=== PATIENT | female | born 1965 | race Caucasian/White ===

== ENCOUNTER 2017-03-27 08:24 | Emergency (ER) | payer MEDICARE, MEDICAID ==
[~2017-03-27] VITALS: Ht 167.6 cm; Wt 88.9 kg
[~2017-03-27 08:24] MED LIST: ADVAIR 500-501 EACH IH; CLONAZEPAM1 MG PO; COPAXONE20 MG/1 ML SQ; CYMBALTA60 MG PO; DEMADEX20 MG PO; DICYCLOMINE HCL20 MG PO; GEODON60 MG PO; HUMULIN R500 UNIT/1; HUMULIN R500 UNIT/1 SUB-Q; KLOR-CON M2020 MEQ PO; LAMICTAL200 MG PO; LASIX20 MG PO; LEVOXYL100 MCG PO; LYRICA50 MG PO; MAXALT MLT10 MG PO; NEURONTIN300 MG PO; NORCO 5-325 TA1 EACH PO; NOVOLIN R100 UNIT/1 IJ; ONDANSETRON ODT4 MG SL; PREVACID30 MG PO; PROMETHAZINE HC25 M1 PO; SINGULAIR10 MG PO; TRAZODONE HCL50 MG PO; VESICARE5 MG PO; VITAMIN D5000 UNIT PO
[2017-03-27] MEDS ORDERED: CYMBALTA60 MG PO (08:38)
[2017-03-27] MEDS ORDERED: OMEPRAZOLE20 MG PO (08:48)
[2017-03-27] MEDS ORDERED: ADVAIR 500-501 EACH INH (08:48)
[2017-03-27] MEDS ORDERED: VITAMIN D35000 UNIT PO (08:48)
[2017-03-27] MEDS ORDERED: TOPIRAMATE25 MG PO (08:49)
== END 2017-03-27 13:48 | disposition home or self-care (01) ==
LOC: ED 08:24
DX: G43.901 Migraine, unspecified, not intractable, with status migrainosus (principal); F31.9 Bipolar disorder, unspecified; E78.00 Pure hypercholesterolemia, unspecified; E11.9 Type 2 diabetes mellitus without complications; E66.9 Obesity, unspecified; J45.909 Unspecified asthma, uncomplicated; Z87.891 Personal history of nicotine dependence; Z88.2 Allergy status to sulfonamides; Z91.040 Latex allergy status; Z88.5 Allergy status to narcotic agent; Z79.899 Other long term (current) drug therapy; R11.2 Nausea with vomiting, unspecified
CPT/HCPCS: 80053; 85025; 96361; 96372; 96374; 96375; 99284; J1200; J1885; J2765; J7030

== ENCOUNTER 2017-04-01 13:08 | Observation (INO) | payer MEDICARE, MEDICAID ==
[~2017-04-01] VITALS: Ht 167.6 cm; Wt 88.9 kg
[~2017-04-01 13:08] MED LIST changes: +ADVAIR 500-501 EACH INH; +OMEPRAZOLE20 MG PO; +TOPIRAMATE25 MG PO; +VITAMIN D35000 UNIT PO
--- NOTE | 2017-04-01 16:39 | NUR ---
PATIENT TO FLOOR FROM ED, ADMITTED WITH K+ OF 2.7 AND HYPOGYLCEMIA. CBG 119. ORDERED PATIENT DRY TOAST AND CHICKEN NOODLE SOUP. FULL BODY ASSESMENT DONE. PATIENT COMPLAINTS OF MIGRAIN 8/10 ON PAIN SCALE. IV FLUIDS INFUSING. WARM BLANKET PROVIDED. PATIENT TO [facility], PIVOT TRANSFER SECONDARY TO [facility].
--- NOTE | 2017-04-01 19:04 | NUR ---
PATIENT RECIEVED IV TORADOL FOR MIGRAINE PAIN. MAG RIDER INFUSING, LR WITH 40 K @125 ML/HR. 1 PERSON STBY WITH PIVOT TRANSFERS [place] [facility] [place]. PATIENT RESTING IN BED, APPEARS CALM. LUNG SOUNDS CLEAR. VS STABLE. CBG STABLE 119
--- NOTE | 2017-04-01 19:33 | NUR ---
RECEIVED REPORT FROM DAY SHIFT RN. PATIENT IS RESTING IN BED WITH EYES CLOSED. PATIENTS BREATHING IS EVEN AND UNLABORED, RR 17. CALL LIGHT IN REACH.
--- NOTE | 2017-04-01 20:15 | NUR ---
PLACED CALL TO MD ABOUT PATIENTS NEW ONSET MIGRAINE. MD SATED THAT NEW ORDER WOULD BE PUT INTO COMPUTER.
--- NOTE | 2017-04-01 21:54 | NUR ---
PATIENT ASSESMENT COMPLETED. PATIENTS EVENING MEDICATIONS GIVEN PER ORDER. PATIENT COMPLAINS OF A NEW ONSET MIGRAINE. PRN MEDICATION GIVEN PER ORDER. PATIENT COMPLAINS OF NAUSEA. PATIENT GIVEN PRN NAUSEA MEDICATION. PATIENT ASSISTED TO THE [facility]. PATIENT IS A 1PA PIVOT TRANSFER AND TOLERATES ACITIVITY WELL. PATIENT IS NOW BACK IN BED WATCHING TV. PATIENT DENIES ANY FURTHER NEEDS AT THIS TIME. CALL LIGHT IS WITHIN REACH.
--- NOTE | 2017-04-01 23:03 | NUR ---
ROUNDED ON PATIENT. PATIENT AND FAMILY DENY AND COMPLAINTS OR CONCERNS. ALL QUESTIONS ANSWERED.
--- NOTE | 2017-04-01 23:16 | NUR ---
PATIENT ASSISTED BACK TO BED. PATIENT TOLERATED AMBUALTION OKAY. PATIENTS FORD DRAINED AND DRESSING AROUND FORD CHANGED IT WAS SATURATED. PATIENTS WATER REFILLED. PATIENT DENIES ANY FURTHER NEEDS. CALL LIGHT IS WITHIN REACH.
--- NOTE | 2017-04-02 01:17 | NUR ---
PATIENT IS RESTING IN BED WITH EYES CLOSED, RR17
--- NOTE | 2017-04-02 02:09 | NUR ---
PATIENTS VITALS TAKEN AND RECORDED. PATIENT DENIES ANY PAIN AT THIS TIME. PATIENT ASSISTED TO THE [facility] [place] 1PA PIVOT TRANSFER. PATIENT TOLERATED ACTIVITY WELL. PATIENT IS NOW BACK IN BED RESTING. PATIENT DENIES ANY FURTHER NEEDS. CALL LIGHT IS WITHIN REACH.
--- NOTE | 2017-04-02 04:20 | NUR ---
PATIENT IS RESTING IN BED WITH EYES CLOSED. PATIENT IS POSITIONED ON HER RIGHT SIDE. BREATHING IS EVEN AND UNLABORED, RR18
--- NOTE | 2017-04-02 05:13 | NUR ---
PATIENT RESTED WELL DURING THE LATER PART OF THE SHIFT. PATIENT GIVEN IMITREX FOR COMPLAINTS OF A MIGRAINE. PATIENT ALSO GIVEN X1 PRN NAUSEA MEDICATION. PATIENT IS ON AN ADA DIET W/1800 CALORIE LIMIT AND IS TOLERATING IT WELL. PATIENT IS A 1PA TO PIVOT TRANSFER TO [facility] [place]. PATIENT DOES WELL W/TRANSFERS. PATIENT HAS AN AKA AMPUTATION W/PROSTHETIC. PROSTHETIC IS AT HOME. PATIENT IS AAOX3 AND CALLS APPROPRIATELY.
--- NOTE | 2017-04-02 06:11 | NUR ---
PATIENT IS REQUESTING PAIN MEDICATION FOR HER MIGRAINE. PATIENT RATES MIGRAINE AT A 5/10. PATIENT GIVEN PRN TORADOL. PATIENT DENIES ANY FURTHER NEEDS AT THIS TIME. CALL LIGHT IS WITHIN REACH.
--- NOTE | 2017-04-02 07:15 | NUR ---
REPORT RECEIVED FROM GAS PLUMBING INSPECTOR RN USING 5 P'S. PT AWAKE AND ALERT IN BED. STATES HEADACHE "MUCH BETTER". IV FLUIDS INFUSING WITHOUT DIFFICULTY. PT DENIES NEEDS AT THIS TIME. CALL LIGHT IN REACH.
--- NOTE | 2017-04-02 08:00 | NUR ---
MD NOTIFIED OF BLOOD SUGAR >400. ORDERS TO STOP FLUIDS AND ADMINISTER INSULIN ORDERED.
--- NOTE | 2017-04-02 10:39 | NUR ---
PT SLEEPING IN BED. POTASSIUM INFUSING WITHOUT DIFFICUTLY.
--- NOTE | 2017-04-02 11:59 | NUR ---
MD NOTIFIED OF BG 377. NO NEW ORDERS RECEIVED. PT AWAKE AND ALERT. COMPLAINS OF PAIN AT IV SITE WITH POTASSIUM INFUSION. INFUSION SLOWED AND DILUTED WITH NS.
--- NOTE | 2017-04-02 14:05 | NUR ---
PT FINISHING K+ INFUSION. PHARMACY IN FOR DC COUNSELLING.
== END 2017-04-02 15:16 | disposition home or self-care (01) ==
LOC: ED 13:08 → MS 13:09
PROVIDERS: ADMIT Internal Medicine
DX: E87.6 Hypokalemia (principal); E83.42 Hypomagnesemia; E11.9 Type 2 diabetes mellitus without complications; R11.2 Nausea with vomiting, unspecified; G43.909 Migraine, unspecified, not intractable, without status migrainosus; F31.9 Bipolar disorder, unspecified; G35 Multiple sclerosis; Z87.891 Personal history of nicotine dependence; Z79.4 Long term (current) use of insulin; Z79.51 Long term (current) use of inhaled steroids; Z79.899 Other long term (current) drug therapy; Z89.612 Acquired absence of left leg above knee; Z88.2 Allergy status to sulfonamides; Z88.8 Allergy status to other drugs, medicaments and biological substances; Z88.5 Allergy status to narcotic agent; Z91.040 Latex allergy status
CPT/HCPCS: 36415; 80048; 83735; 85025; 94640; 94760; 96361; 96374; 96375; 96376; 99285; G0378; J1200; J1885; J2405; J2550; J3475; J3480; J7030; J7060; J7120